=== PATIENT | female | born 1955 | race Caucasian/White ===

== ENCOUNTER 2017-03-06 18:05 | Emergency (ER) | payer OTHER ==
[2017-03-06 18:16] VITALS: TEMP 98.3; BMI 28.1
[2017-03-06] MEDS ORDERED: FLUCONAZOLE 100 MG TABLET (UD) ONE (18:55)
[2017-03-06 19:04] LABS: BASOPHIL 0.6 % (0-2.0); EOSINOPHIL 1.5 % (0-4.5); MCH 30.1 pg (25.7-33.7); MCHC 34.4 g/dl (32.0-36.0); MEAN CELL VOLUME 87.6 fl (80-96); MEAN PLT VOLUME 8.2 fl (7.5-11.1); NEUTROPHILS 46.4 % (42.8-82.8); PLATELET COUNT 223 K/MM3 (134-434); RDW 13.2 % (11.6-15.6); WHITE BLOOD COUNT 7.7 K/mm3 (4.0-10.0)
--- NOTE | 2017-03-06 19:29 | PDOC ---
History of Present Illness - General History Source: Patient Exam Limitations: No Limitations <Perez Horvath - Last Filed: 03/06/17 19:33> <Terry Em - Last Filed: 03/06/17 23:01> - General Chief Complaint: Chest Pain Stated Complaint: CHEST PAIN/palpitations Time Seen by Provider: 03/06/17 18:21 - History of Present Illness Initial Comments: 03/06/17 18:22 The patient is a 61 year old female with a significant past medical history of hyperlipidemia, NIDDM, and hypertension who presents to the emergency department complaining of intermittent palpitations beginning yesterday and progressively worse today. The patient reports she took her medication for high blood pressure, Amlodipine 5 mg, yesterday but states intermittent palpitation have been progressively worse. She reports associated symptoms of dizziness secondary to the palpitations. The patient denies chest pain or shortness of breath. She denies recent fever, chills, diaphoresis, headache, nausea or vomiting. She denies recent weakness or swelling. Patient denies chest pain at any point. Allergies: NKA Past surgical history: Benign colon mass resection 2014, R. hip sx 01/10 Social history: Nonsmoker. Denies EtOH use and recreational drug use. Primary Care Physician: Dr. Tripp Carreon Director Translation: Dr. Chuck Joya (Perez Horvath) Past History <Perez Horvath - Last Filed: 03/06/17 19:33> - Past Medical History Anemia: No Asthma: No Cancer: No Cardiac Disorders: No CVA: No COPD: No CHF: No Dementia: No Diabetes: No GI Disorders: Yes (H.PYLORI) Disorders: No HTN: Yes Hypercholesterolemia: Yes (HIGH TRIGLYCERIDES) Liver Disease: No Seizures: No Thyroid Disease: No - Surgical History Abdominal Surgery: No Appendectomy: No Cardiac Surgery: No Cholecystectomy: No Lung Surgery: No Neurologic Surgery: No Orthopedic Surgery: Yes (RIGHT TOTAL HIP 01/10) - Immunization History Immunization Up to Date: Yes (FLU UTD) - Psycho/Social/Smoking Cessation Hx Anxiety: No Suicidal Ideation: No Smoking History: Never smoked Have you smoked in the past 12 months: No Information on smoking cessation initiated: No Hx Alcohol Use: No Drug/Substance Use Hx: No Substance Use Type: None Hx Substance Use Treatment: No <Terry Em - Last Filed: 03/06/17 23:01> - Past Medical History Allergies/Adverse Reactions: Allergies Allergy/AdvReac Type Severity Reaction Status Date / Time No Known Allergies Allergy Verified 03/06/17 18:16 Home Medications: Ambulatory Orders Amlodipine Besylate [Norvasc -] 5 mg PO DAILY 10/20/14 Fenofibrate 145 mg PO DAILY 10/20/14 Atorvastatin Ca [Lipitor] 1 tab PO DAILY 04/09/15 Metformin HCl 1,000 mg PO BID 04/17/15 Cardiac Specific PMH - Complaint Specific PMHX Abdominal Aortic Aneurysm: No Angina: No Cardiac Arrhythmia: No Cardiac Stent: No GERD: No Pacemaker: No Pulmonary Embolus: No Valvular Heart Disease: No Peripheral Vascular Disease: No <Terry Em - Last Filed: 03/06/17 23:01> Review of Systems <Perez Horvath - Last Filed: 03/06/17 19:33> <Terry Em - Last Filed: 03/06/17 23:01> - Review of Systems Comments:: 03/06/17 18:22 CONSTITUTIONAL: +Dizziness. No fever, no chills, no fatigue EYES: No visual changes ENT: No ear pain, no sore throat CARDIOVASCULAR: +Palpitations. No chest pain. RESPIRATORY: No cough, no SOB GI: No abdominal pain, no nausea, no vomiting, no constipation, no diarrhea GENITOURINARY: No dysuria, no frequency, no hematuria MUSKULOSKELETAL: No backpain, no joint pain, no myalgias SKIN: No rash NEURO: No headache (Perez Horvath) *Physical Exam <Perez Horvath - Last Filed: 03/06/17 19:33> <Terry Em - Last Filed: 03/06/17 23:01> - Vital Signs Last Vital Signs Temp Pulse Resp BP Pulse Ox 98.3 F 84 17 141/73 97 03/06/17 18:14 03/06/17 20:15 03/06/17 20:15 03/06/17 20:15 03/06/17 20:15 - Physical Exam Comments: 03/06/17 18:22 CONSTITUTIONAL: Well-appearing; well-nourished; in no apparent distress HEAD: Normocephalic; atraumatic EYES: PERRL; EOM intact ENMT: External appears normal; normal oropharynx NECK: Supple; non-tender; no cervical lymphadenopathy CARD: Normal S1, S2; no murmurs, rubs, or gallops RESP: Normal chest excursion with respiration; breath sounds clear and equal bilaterally; no wheezes, rhonchi, or rales ABD: Soft, non-distended; non-tender; no palpable organomegaly, no palpable hernias EXT: Normal ROM in all four extremities; non-tender to palpation; distal pulses intact SKIN: Warm, dry, no rash NEURO: No focal neurological deficiencies. (Perez Horvath) Heart Score/ECG Review <Perez Horvath - Last Filed: 03/06/17 19:33> <Terry Em - Last Filed: 03/06/17 23:01> #1 03/06/17 18:22 Normal Sinus Rhythm Normal ECG Vent. rate 90 bpm VT interval 132 ms QRS duration 82 ms QT/QTc 374/457 ms P-R-T axes 43 38 28 (Perez Horvath) ED Treatment Course - LABORATORY CBC & Chemistry Diagram: 03/06/17 18:53 03/06/17 18:53 <Perez Horvath - Last Filed: 03/06/17 19:33> - LABORATORY CBC & Chemistry Diagram: 03/06/17 18:53 03/06/17 18:53 <Terry Em - Last Filed: 03/06/17 23:01> - ADDITIONAL ORDERS Additional order review: Laboratory Results 03/06/17 18:53 Sodium 141 Potassium 4.3 Chloride 106 Carbon Dioxide 26 Anion Gap 9 BUN 17 Creatinine 1.0 Creat Clearance w eGFR 56.37 Random Glucose 111 H Calcium 9.6 Magnesium 1.3 L D Total Bilirubin 0.2 D AST 50 H D ALT 76 D Alkaline Phosphatase 104 D Creatine Kinase 184 Troponin I < 0.02 Total Protein 8.6 H Albumin 4.1 03/06/17 18:53 RBC 4.03 MCV 87.6 MCHC 34.4 RDW 13.2 MPV 8.2 D Neutrophils % 46.4 Lymphocytes % 45.1 H Monocytes % 6.4 Eosinophils % 1.5 Basophils % 0.6 - RADIOLOGY Radiology Studies Ordered: Category Date Time Status CHEST X-RAY PORTABLE* [RAD] Stat Radiology 03/06/17 18:51 Taken - Medications Given in the ED: ED Medications Discontinued Medications Generic Name Dose Route Start Last Admin Trade Name Lolita PRN Reason Stop Dose Admin Magnesium Sulfate 2 gm 03/06/17 21:01 03/06/17 21:21 Magnesium Sulfate IVPB 03/06/17 21:02 2 gm ONCE ONE Administration Medical Decision Making <Perez Horvath - Last Filed: 03/06/17 19:33> <Terry Em - Last Filed: 03/06/17 23:01> - Medical Decision Making 03/06/17 22:59 Patient is 61-year-old female with history of hypertension and hypercholesterolemia who presents to the ER with intermittent palpitations over the past several days, intermittent, without associated chest pain or shortness of breath. In the ER, patient is awake and alert, well-appearing, asymptomatic with normal stable vital signs. EKG shows normal sinus rhythm without evidence of acute dysrhythmia or ischemia. Chest x-ray reveals no evidence of infiltrate or effusion or cardiomegaly. CBC is unremarkable. CMP reveals moderate hypomagnesemia (patient received 2 g of magnesium sulfate.) I do not suspect a pulmonary embolism at this time. Patient's oxygen saturation is noted to be 99% on room air. ACS is also highly unlikely. Will discharge with cardiology follow- up. (Terry Em) *DC/Admit/Observation/Transfer <Perez Horvath - Last Filed: 03/06/17 19:33> <Terry Em - Last Filed: 03/06/17 23:01> Diagnosis at time of Disposition: Palpitations, Hypomagnesemia - Discharge Dispostion Disposition: HOME Condition at time of disposition: Stable - Referrals Referrals: Tripp Carreon MD [Primary Care Provider] - - Patient Instructions Printed Discharge Instructions: DI for Palpitations - Attestations Scribe Attestion: 03/06/17 19:32 Documentation prepared by Perez Horvath, acting as biomedical technician for Terry Em MD. (Perez Horvath) Physician Attestion: 03/06/17 22:58 The documentation was prepared by the scribe under my direct supervision. I have reviewed the documentation which correctly represents the findings, medical decision-making and critical action taken by me. (Terry Em)
[2017-03-06 19:34] LABS: ALBUMIN 4.1 g/dl (3.4-5.0); ANION GAP 9 (8-16); BILIRUBIN,TOTAL 0.2 mg/dL (0.2-1.0); CALCIUM 9.6 mg/dL (8.5-10.1); CO2 26 mmol/L (21-32); GLUCOSE,RANDOM 111 mg/dL (74-106); MAGNESIUM 1.3 mg/dL (1.8-2.4); SGOT/AST 50 U/L (15-37); SGPT/ALT 76 U/L (12-78); TOT PROT 8.6 g/dl (6.4-8.2)
[2017-03-06 19:37] LABS: ALK PHOS 104 U/L (45-117); CPK 184 IU/L (26-192); TROPONIN I < 0.02 ng/ml (0.00-0.05)
[2017-03-06] MEDS ORDERED: MAGNESIUM SULF 50% (8.12 MEQ/2 ML-1 GM VIAL) IVPB ONE (21:01)
[2017-03-06] MEDS ORDERED: MAGNESIUM SULF 50% (8.12 MEQ/2 ML-1 GM VIAL) ONE (21:09)
[2017-03-06 23:15] VITALS: BP 133/80; PULSE 78
== END 2017-03-06 23:19 | disposition home or self-care (01) ==
LOC: JER 18:05
PROC: 3E033GC Introduction of Other Therapeutic Substance into Peripheral Vein, Percutaneous Approach (ICD-10-PCS; principal; 2017-03-06)
DX: E83.42 Hypomagnesemia (principal); R00.2 Palpitations; E11.9 Type 2 diabetes mellitus without complications; Z79.84 Long term (current) use of oral hypoglycemic drugs; E78.00 Pure hypercholesterolemia, unspecified
CPT/HCPCS: 36415; 71010-TC; 80053; 82553; 83735; 84484; 85025; 99283-25

== ENCOUNTER 2018-08-03 14:16 | Emergency (ER) | payer OTHER ==
--- NOTE | 2018-08-03 14:26 | PDOC ---
Rapid Medical Evaluation Time Seen by Provider: 08/03/18 14:23 Medical Evaluation: Allergies Allergy/AdvReac Type Severity Reaction Status Date / Time No Known Allergies Allergy Verified 03/06/17 18:16 08/03/18 14:23 Pt presents for L knee pain and hip for one week. Pt also endorses low back pain . Denies saddle anesthesia, bladder/bowel incontinence. Exam: Ambulatory, NAD Orders: Nothing Pt to proceed to the ED for further evaluation Discharge Disposition - Diagnosis Back pain - Referrals - Patient Instructions - Post Discharge Activity
[2018-08-03 14:27] VITALS: BP 131/72; PULSE 82; TEMP 98.5; BMI 27.4
--- NOTE | 2018-08-03 15:14 | PDOC ---
History of Present Illness - General Chief Complaint: Pain, Acute Stated Complaint: LEFT SIDED PAIN Time Seen by Provider: 08/03/18 14:23 - History of Present Illness Initial Comments: 08/03/18 15:11 63-year-old female with a past medical history significant for hypertension diabetes and dyslipidemia presents for evaluation of atraumatic left knee pain times one day. She states she was getting up out of a chair at work and felt an onset of pain in her left knee. She points to the medial aspect of the left knee of the area of her discomfort. Past History - Past Medical History Allergies/Adverse Reactions: Allergies Allergy/AdvReac Type Severity Reaction Status Date / Time No Known Allergies Allergy Verified 08/03/18 14:24 Home Medications: Ambulatory Orders Amlodipine Besylate [Norvasc -] 5 mg PO DAILY 10/20/14 Fenofibrate 145 mg PO DAILY 10/20/14 Atorvastatin Ca [Lipitor] 1 tab PO DAILY 04/09/15 metFORMIN HCL [Metformin HCl] 1,000 mg PO BID 04/17/15 Anemia: No Asthma: No Cancer: No Cardiac Disorders: No CVA: No COPD: No CHF: No Dementia: No Diabetes: No GI Disorders: Yes (H.PYLORI) Disorders: No HTN: Yes Hypercholesterolemia: Yes (HIGH TRIGLYCERIDES) Liver Disease: No Seizures: No Thyroid Disease: No - Surgical History Abdominal Surgery: No Appendectomy: No Cardiac Surgery: No Cholecystectomy: No Lung Surgery: No Neurologic Surgery: No Orthopedic Surgery: Yes (RIGHT TOTAL HIP 01/10) - Immunization History Immunization Up to Date: Yes (FLU UTD) - Suicide/Smoking/Psychosocial Hx Smoking History: Never smoked Have you smoked in the past 12 months: No Hx Alcohol Use: No Drug/Substance Use Hx: No Substance Use Type: None Hx Substance Use Treatment: No Review of Systems - Review of Systems Musculoskeletal: Yes: Joint Pain *Physical Exam - Vital Signs Last Vital Signs Temp Pulse Resp BP Pulse Ox 98.5 F 82 16 131/72 08/03/18 14:24 08/03/18 14:24 08/03/18 14:24 08/03/18 14:24 - Physical Exam Comments: 08/03/18 15:12 Left knee skin color and temperature are normal range of motion to 90 beyond 90 causes pain at the medial aspect of the left knee. There is no intra- articular effusion or instability. No patellofemoral apprehension. Posterior medial joint line tenderness. No other areas of tenderness. Full hip and ankle range of motion negative straight leg raise test. She is neurovascularly intact. Thighs and calves are soft and nontender. Moderate Sedation - Procedure Monitoring Vital Signs: Procedure Monitoring Vital Signs Temperature 98.5 F 08/03/18 14:24 Pulse Rate 82 08/03/18 14:24 Respiratory Rate 16 08/03/18 14:24 Blood Pressure 131/72 08/03/18 14:24 O2 Sat by Pulse Oximetry (%) *DC/Admit/Observation/Transfer Diagnosis at time of Disposition: Knee pain Diagnosis at time of Disposition: (Ruled Out): Back pain - Discharge Dispostion Disposition: HOME Condition at time of disposition: Stable Decision to Admit order: No - Referrals Referrals: Tripp Carreon MD [Primary Care Provider] - Holland Bansal MD [Staff Physician] - - Patient Instructions Printed Discharge Instructions: DI for Knee Pain Additional Instructions: He may take Tylenol for pain as directed. Return to the emergency room should symptoms worsen or go unresolved. Follow-up with orthopedic surgery in 1-2 days for further evaluation and treatment options. He may weight-bear as tolerated with the use of crutches - Post Discharge Activity
== END 2018-08-03 15:20 | disposition home or self-care (01) ==
LOC: JERFT 14:16
DX: M25.562 Pain in left knee (principal); X50.1XXA Overexertion from prolonged static or awkward postures, initial encounter; Y93.89 Activity, other specified; Y92.89 Other specified places as the place of occurrence of the external cause; Y99.0 Civilian activity done for income or pay; I10 Essential (primary) hypertension; E78.5 Hyperlipidemia, unspecified; E11.9 Type 2 diabetes mellitus without complications; Z79.84 Long term (current) use of oral hypoglycemic drugs
CPT/HCPCS: 99281-25